=== PATIENT | male | born 1980 | race Caucasian/White ===

== ENCOUNTER 2018-04-08 13:01 | Inpatient (IN) | payer OTHER ==
[2018-04-08 13:36] VITALS: BMI 29.0
--- NOTE | 2018-04-08 14:01 | HP ---
COWS - Scale Resting Pulse: 1= AR 81-100 Sweatin=Flushed/Facial Moisture Restless Observation: 0= Sits Still Pupil Size: 0= Normal to Room Light Bone or Joint Aches: 1= Mild Discomfort Runny Nose/ Eye Tearin= None GI Upset > 30mins: 0= None Tremor Observation: 0= None Yawning Observation: 0= None Anxiety or Irritability: 0= None CIWA Score - CIWA Score Nausea/Vomitin-Mild Nausea/No Vomiting Muscle Tremors: None Anxiety: 0-No Anxiety, at Ease Agitation: 0-Normal Activity Paroxysmal Sweats: 2 Orientation: 0-Oriented Tacttile Disturbances: 0-None Auditory Disturbances: 0-None Visual Disturbances: 1-Very Mild Sensitivity Headache: 0-None Present CIWA-Ar Total Score: 4 Admission ROS S - HPI Chief Complaint: pt here requesting detox from etoh use , reports 1 .5-2 pints/day x 15 yrs , latest use yesterday , reports diarrhea, tremors, shaking , difficulty sleeping , anxiety if not drinking , starts drinking early afternoon, denies seizures , + blackouts , denies falls states he was referred by [facility] . Reports on Suboxone from PCP i-stop 03/04/2018 04/04/2018 suboxone 8 mg-2 mg sl film 90 30 Braden Serna 03/04/2018 03/06/2018 suboxone 8 mg-2 mg sl film 90 30 SernaBraden cm 12/31/2017 01/10/2018 suboxone 8 mg-2 mg sl film 90 30 Braden Serna 12/12/2017 12/12/2017 suboxone 8 mg-2 mg sl film 90 30 Darlin Mckeon 11/06/2017 11/14/2017 suboxone 8 mg-2 mg sl film 90 30 SernaBraden cm 09/17/2017 09/17/2017 suboxone 8 mg-2 mg sl film 90 30 Barden Serna Patient Name: Silvestre Eng Date: 1980 Address: [address] [place] [id number] Sex: Male Rx Written Rx Dispensed Drug Quantity Days Supply Prescriber Name 10/09/2017 10/15/2017 suboxone 8 mg-2 mg sl film 90 30 Braden Serna 08/21/2017 08/22/2017 suboxone 8 mg-2 mg sl film 90 30 Braden Serna 03/26/2017 04/29/2017 suboxone 8 mg-2 mg sl film 90 30 Braden Serna latest heroin use : " I don't rermember " cocaine use - denies utox - teressa , opi , bup , fentanyl claims took a pill a few days ago " sivan " - claims a " mixture of things " denies prior OD denies IVDU pmhx : asthma x 2 years ( hospitalized 2 weeks ago, [facility] ) has inhaler Albuterol , Advair , Prednisone pshx : denies psych : denies meds : Gabapentin tobacco use - 3 cigs/day denies nrt Allergies/Adverse Reactions: Allergies Allergy/AdvReac Type Severity Reaction Status Date / Time Fish Containing Products Allergy Severe Swelling Verified 10/05/15 16:21 No Known Drug Allergies Allergy Verified 10/05/15 17:28 - Ebola screening Have you traveled outside of the country in the last 21 days: No Have you had contact with anyone from an Ebola affected area: No Have you been sick,other than usual withdrawal symptoms: No Do you have a fever: No - Review of Systems Constitutional: See HPI EENT: reports: See HPI Respiratory: reports: See HPI Cardiac: reports: See HPI GI: reports: See HPI : reports: See HPI Musculoskeletal: reports: See HPI Integumentary: reports: See HPI Neuro: reports: See HPI Endocrine: reports: See HPI Hematology: reports: See HPI Psychiatric: reports: No Sypmtoms Reported Patient History - Patient Medical History Hx Anemia: No Hx Asthma: No Hx Chronic Obstructive Pulmonary Disease (COPD): No Hx Cancer: No Hx Cardiac Disorders: No Hx Congestive Heart Failure: No Hx Hypertension: No Hx Hypercholesterolemia: No Hx Pacemaker: No HX Cerebrovascular Accident: No Hx Seizures: No Hx Dementia: No Hx Diabetes: No Hx Gastrointestinal Disorders: No Hx Genitourinary Disorders: No Hx Sexually Transmitted Disorders: No Hx Renal Disease (ESRD): No Hx Thyroid Disease: No Hx Human Immunodeficiency Virus (HIV): No (neg 1 year) Hx Hepatitis C: No Hx Depression: No Hx Suicide Attempt: No Hx Bipolar Disorder: No Hx Schizophrenia: No - Patient Surgical History Past Surgical History: No Hx Neurologic Surgery: No Hx Cataract Extraction: No Hx Cardiac Surgery: No Hx Lung Surgery: No Hx Breast Surgery: No Hx Breast Biopsy: No Hx Abdominal Surgery: No Hx Appendectomy: No Hx Cholecystectomy: No Hx Genitourinary Surgery: No Hx Section: No Hx Orthopedic Surgery: No Anesthesia Reaction: No - PPD History Date: 10/07/15 - Smoking Cessation Smoking history: Current every day smoker Have you smoked in the past 12 months: Yes Aproximately how many cigarettes per day: 4 Hx Chewing Tobacco Use: No Initiated information on smoking cessation: No Family Disease History - Family Disease History Family History: Denies Admission Physical Exam [facility] - Vital Signs Vital Signs: Vital Signs - 24 hr 04/08/18 13:35 Temperature 99.6 F Pulse Rate 85 Respiratory 18 Rate Blood Pressure 125/96 - Physical General Appearance: Yes: Within Normal Limits, No Apparent Distress, Nourished, Appropriately Dressed HEENTM: Yes: Within Normal Limits, EOMI, Hearing grossly Normal, Normal ENT Inspection, Normocephalic, Normal Voice, MARY KATE, Pharynx Normal, Tm's normal Respiratory: Yes: Within Normal Limits, Chest Non-Tender, Lungs Clear, Normal Breath Sounds, No Respiratory Distress, No Accessory Muscle Use Neck: Yes: Within Normal Limits, No masses,lesions,Nodules, Trachea in good position, Thyroid enlarged Cardiology: Yes: Within Normal Limits, Regular Rhythm, Regular Rate Abdominal: Yes: Within Normal Limits, Normal Bowel Sounds, Non Tender, Flat, Soft Back: Yes: Within Normal Limits, Normal Inspection Musculoskeletal: Yes: Within Normal Limits, full range of Motion, Gait Steady, Pelvis Stable Extremities: Yes: Within Normal Limits, Normal Inspection, Normal Range of Motion, Non-Tender Neurological: Yes: Within Normal Limits, Fully Oriented, Alert, Motor Strength 5 /5, Normal Mood/Affect, Normal Response, Finger to Nose Integumentary: Yes: Within Normal Limits, Normal Color, Dry, Warm Lymphatic: Yes: Within Normal Limits Cleared for Admission S - Detox or Rehab Detox Regimen/Protocol: Librium [facility] Breath Alcohol Content Breath Alcohol Content: 0 Urine Drug Screen - Results Drug Screen Negative: No Urine Drug Screen Results: TERESSA-Cocaine, OPI-Opiates, FEN-Fentanyl, BUP-Suboxone
[2018-04-08] MEDS ORDERED: ACETAMINOPHEN 325 MG TABLET (FP) PO PRN (14:16)
[2018-04-08] MEDS ORDERED: MAG HYDROX/AL HYDROX/SIMETH 30 ML UNIT-DOSE CUP PO PRN (14:16)
[2018-04-08] MEDS ORDERED: IBUPROFEN 400 MG TABLET (FP) PO PRN (14:16)
[2018-04-08] MEDS ORDERED: MAGNESIUM CITRATE 300 ML BOTTLE PO PRN (14:16)
[2018-04-08] MEDS ORDERED: MAGNESIUM HYDROX 2400MG/30ML ORAL SUSPENSION 30 ML CUP PO PRN (14:16)
[2018-04-08] MEDS ORDERED: ALBUTEROL SO4 0.083% IH SOL 2.5 MG/3 ML VIAL.NEB. NEB PRN (14:20)
[2018-04-08] MEDS ORDERED: ALBUTEROL SO4 8 GM HFA INHALER IH PRN (14:20)
[2018-04-08] MEDS: chlordiazePOXIDE HCL 25 MG CAPSULE PO SCH ×2 (17:29→22:14)
[2018-04-08] MEDS ORDERED: MELATONIN 5 MG TABLETS PO PRN (22:00)
[2018-04-08] MEDS: THIAMINE HCL 100 MG TABLET (FP) PO SCH (22:14)
[2018-04-08] MEDS: predniSONE 20 MG TABLET (UD) PO SCH (22:15)
[2018-04-08] MEDS: MONTELUKAST NA 10 MG TABLET PO SCH (22:15)
[2018-04-08] MEDS: GABAPENTIN 300 MG CAPSULE (FP) PO SCH (22:15)
[2018-04-08 23:13] LABS: URINE APPEARANCE TURBID; URINE BILIRUBIN NEGATIVE (<2.0 mg/dL); URINE COLOR YELLOW; URINE GLUCOSE (UA) NEGATIVE (NEGATIVE); URINE KETONE NEGATIVE (NEGATIVE); URINE LEUK ESTERASE NEGATIVE (NEGATIVE); URINE NITRITE NEGATIVE (NEGATIVE); URINE PROTEIN NEGATIVE (NEGATIVE); URINE UROBILINOGEN 4.0 E.U/dl mg/dL (0.2-1.0)
[2018-04-09] MEDS: GABAPENTIN 300 MG CAPSULE (FP) PO SCH ×3 (05:54→22:18)
[2018-04-09] MEDS: chlordiazePOXIDE HCL 25 MG CAPSULE PO SCH ×4 (05:54→22:18)
--- NOTE | 2018-04-09 09:51 | PN ---
S CIWA - CIWA Score Nausea/Vomitin-No Nausea/No Vomiting Muscle Tremors: None Anxiety: 1-Mildly Anxious Agitation: 0-Normal Activity Paroxysmal Sweats: 1-Minimal Palms Moist Orientation: 0-Oriented Tacttile Disturbances: 0-None Auditory Disturbances: 0-None Visual Disturbances: 0-None Headache: 1-Very Mild CIWA-Ar Total Score: 3 [facility] Progress Note (SOAP) Subjective: Patient presents with mild sweating, anxiety and headache. Objective: 04/09/18 09:49 Laboratory Tests 04/08/18 16:54 Urine Color Yellow Urine Appearance Turbid Urine pH 5.0 Ur Specific [place] 1.030 Urine Protein Negative Urine Glucose (UA) Negative Urine Ketones Negative Urine Blood Negative Urine Nitrite Negative Urine Bilirubin Negative Urine Urobilinogen 4.0 e.u/dl Ur Leukocyte Esterase Negative Vital Signs Temperature 98.0 F 04/09/18 09:08 Pulse Rate 67 04/09/18 09:08 Respiratory Rate 18 04/09/18 09:08 Blood Pressure 110/63 04/09/18 09:08 O2 Sat by Pulse Oximetry (%) obj: alert and oriented skin warm and moist car s1s2 resp cta bl psych mild anxiety Assessment: 04/09/18 09:51 withdrawal syndrome Plan: continue detox as per protocol encourage oral fluids continue to monitor clinically
[2018-04-09] MEDS: PRENATAL VITAMINS W/ FOLIC ACID TABLET (FP) PO SCH (10:19)
[2018-04-09] MEDS: predniSONE 20 MG TABLET (UD) PO SCH ×2 (10:19→22:19)
[2018-04-09] MEDS: BUPRENORPHINE/NALOXONE 8 MG/2 MG FILM PACKET SL SCH (10:20)
[2018-04-09 10:21] LABS: HEMATOCRIT 43.7 % (35.4-49); HEMOGLOBIN 14.1 GM/dL (11.7-16.9); MCH 29.8 pg (25.7-33.7); MCHC 32.3 g/dl (32.0-35.9); MEAN CELL VOLUME 92.1 fl (80-96); MEAN PLT VOLUME 10.8 fl (7.5-11.1); PLATELET COUNT 186 K/MM3 (134-434); RBC 4.74 M/mm3 (4.00-5.60); RDW 13.3 % (11.9-15.9); WHITE BLOOD COUNT 9.3 K/mm3 (4.0-10.0)
[2018-04-09 10:40] LABS: CHLORIDE 104 mmol/L (98-107); POTASSIUM 4.2 mmol/L (3.5-5.1); SODIUM 139 mmol/L (136-145)
[2018-04-09 11:16] LABS: ALBUMIN 3.7 g/dl (3.4-5.0); ALK PHOS 126 U/L (45-117); ANION GAP 7 MMOL/L (8-16); BILIRUBIN,TOTAL 0.4 mg/dL (0.2-1); BLOOD UREA NITROGEN 14 mg/dL (7-18); CALCIUM 9.2 mg/dL (8.5-10.1); CO2 28 mmol/L (21-32); GLUCOSE,RANDOM 126 mg/dL (74-106); SGOT/AST 22 U/L (15-37); SGPT/ALT 40 U/L (13-61); TOT PROT 7.4 g/dl (6.4-8.2)
[2018-04-09] MEDS ORDERED: FLU VACCINE QUAD 60 MCG/0.5 ML (MDV 18-19) IM ONE (12:00)
--- NOTE | 2018-04-09 12:59 | EKG ---
Test Reason : Blood Pressure : / mmHG Vent. Rate : 060 BPM Atrial Rate : 060 BPM P-R Int : 126 ms QRS Dur : 090 ms QT Int : 404 ms P-R-T Axes : 032 065 033 degrees QTc Int : 404 ms NORMAL SINUS RHYTHM NORMAL ECG NO PREVIOUS ECGS AVAILABLE Confirmed by SANDRA HANDLEY, KWADWO ([id number]) on 04/09/2018 12:59:11 PM Referred By: Confirmed By:KWADWO FLORES MD
[2018-04-09] MEDS ORDERED: BUDESONIDE/FORMETEROL FUMARATE 80/4.5 mcg INHALER IH ONE (13:45)
--- NOTE | 2018-04-09 16:17 | PN ---
[facility] Progress Note Note: Patient has been treated with suboxone 8mg three times daily which was verified in ISTOP and dispensed 04/04/18. Patient was admitted on 04/08/18 and ordered Suboxone 8mg daily [address]. Miner. Dr. Miner called to verify order and MD stated that patient was informed he will be ordered suboxone 8mg daily while in detox and agreed with plan. Patient to continue Suboxone as ordered.
[2018-04-09] MEDS: BUDESONIDE/FORMETEROL FUMARATE 80/4.5 mcg INHALER IH SCH (22:17)
[2018-04-09] MEDS: MONTELUKAST NA 10 MG TABLET PO SCH (22:18)
[2018-04-09] MEDS: THIAMINE HCL 100 MG TABLET (FP) PO SCH (22:18)
[2018-04-10] MEDS: chlordiazePOXIDE HCL 25 MG CAPSULE PO SCH ×2 (05:16→10:14)
[2018-04-10] MEDS: GABAPENTIN 300 MG CAPSULE (FP) PO SCH ×3 (05:16→22:58)
[2018-04-10] MEDS: PRENATAL VITAMINS W/ FOLIC ACID TABLET (FP) PO SCH (10:14)
[2018-04-10] MEDS: BUDESONIDE/FORMETEROL FUMARATE 80/4.5 mcg INHALER IH SCH ×2 (10:14→23:17)
[2018-04-10] MEDS: predniSONE 20 MG TABLET (UD) PO SCH ×2 (10:14→22:21)
[2018-04-10] MEDS: BUPRENORPHINE/NALOXONE 8 MG/2 MG FILM PACKET SL SCH (10:14)
--- NOTE | 2018-04-10 12:58 | PN ---
S CIWA - CIWA Score Nausea/Vomitin-Mild Nausea/No Vomiting Muscle Tremors: None Anxiety: 1-Mildly Anxious Agitation: 0-Normal Activity Paroxysmal Sweats: No Perspiration Orientation: 0-Oriented Tacttile Disturbances: 0-None Auditory Disturbances: 0-None Visual Disturbances: 0-None Headache: 2-Mild CIWA-Ar Total Score: 4 [facility] Progress Note (SOAP) Subjective: PATIENT PRESENTS WITH MILD ANXIETY, HEADACHE, INSOMNIA, MILD NAUSEA AND STOMACH CRAMPS. Objective: 04/10/18 12:54 Laboratory Tests 04/08/18 04/09/18 04/09/18 16:54 07:00 07:00 WBC 9.3 RBC 4.74 Hgb 14.1 Hct 43.7 MCV 92.1 MCH 29.8 MCHC 32.3 RDW 13.3 Plt Count 186 D MPV 10.8 Sodium 139 Potassium 4.2 Chloride 104 Carbon Dioxide 28 Anion Gap 7 L BUN 14 Creatinine 1.0 Creat Clearance w eGFR > 60 Random Glucose 126 H Calcium 9.2 Total Bilirubin 0.4 AST 22 ALT 40 Alkaline Phosphatase 126 H Total Protein 7.4 Albumin 3.7 Urine Color Yellow Urine Appearance Turbid Urine pH 5.0 Ur Specific [place] 1.030 Urine Protein Negative Urine Glucose (UA) Negative Urine Ketones Negative Urine Blood Negative Urine Nitrite Negative Urine Bilirubin Negative Urine Urobilinogen 4.0 e.u/dl Ur Leukocyte Esterase Negative RPR Titer 04/09/18 07:00 WBC RBC Hgb Hct MCV MCH MCHC RDW Plt Count MPV Sodium Potassium Chloride Carbon Dioxide Anion Gap BUN Creatinine Creat Clearance w eGFR Random Glucose Calcium Total Bilirubin AST ALT Alkaline Phosphatase Total Protein Albumin Urine Color Urine Appearance Urine pH Ur Specific [place] Urine Protein Urine Glucose (UA) Urine Ketones Urine Blood Urine Nitrite Urine Bilirubin Urine Urobilinogen Ur Leukocyte Esterase RPR Titer Nonreactive ALERT AND ORIENTED X 3 SKIN WARM AND DRY CAR S1S2 RESP CTA GI SOFT, BS+ NT NEURO CN 1-X11 GROSSLY INTACT 04/10/18 12:57 Assessment: 04/10/18 12:57 WITHDRAWAL SYNDROME Plan: CONTINUE DETOX PER PROTOCOL ENCOURAGE ORAL FLUIDS
--- NOTE | 2018-04-10 15:14 | PN ---
[facility] Progress Note Note: Patient continues to have anxiety, headaches and body aches. Discussed symptoms with Dr. Miner. agreed to give one additional film of Suboxone 8mg/2mg tonight at 10pm and MD is to follow up with patient tomorrow. Suboxone 8mg/2mg one film ordered to be given at 10pm. Continue to monitor clinically.
[2018-04-10] MEDS ORDERED: BUPRENORPHINE/NALOXONE 8 MG/2 MG FILM PACKET SL ONE ×2 (17:00→22:00)
[2018-04-10] MEDS: chlordiazePOXIDE 5 MG CAPSULE PO SCH ×2 (17:44→22:21)
[2018-04-10] MEDS: MONTELUKAST NA 10 MG TABLET PO SCH (22:21)
[2018-04-10] MEDS: THIAMINE HCL 100 MG TABLET (FP) PO SCH (22:21)
[2018-04-11] MEDS: chlordiazePOXIDE 5 MG CAPSULE PO SCH ×2 (05:19→10:09)
[2018-04-11] MEDS: GABAPENTIN 300 MG CAPSULE (FP) PO SCH ×3 (05:19→22:33)
[2018-04-11] MEDS: BUPRENORPHINE/NALOXONE 8 MG/2 MG FILM PACKET SL SCH ×3 (05:20→22:33)
[2018-04-11] MEDS: BUDESONIDE/FORMETEROL FUMARATE 80/4.5 mcg INHALER IH SCH ×2 (10:09→22:34)
[2018-04-11] MEDS: PRENATAL VITAMINS W/ FOLIC ACID TABLET (FP) PO SCH (10:09)
[2018-04-11] MEDS: predniSONE 20 MG TABLET (UD) PO SCH ×2 (10:09→22:33)
--- NOTE | 2018-04-11 10:52 | PN ---
[facility] Progress Note (SOAP) Subjective: ANXIETY,SWEATS/CHILLS,FATIGUE. Objective: 04/11/18 10:51 Vital Signs 04/11/18 04/11/18 04/11/18 03:30 06:09 09:48 Temperature 97.5 F L 97.6 F Pulse Rate 58 L 63 Respiratory 18 18 18 Rate Blood Pressure 123/67 112/77 Laboratory Tests 04/08/18 04/09/18 04/09/18 16:54 07:00 07:00 WBC 9.3 RBC 4.74 Hgb 14.1 Hct 43.7 MCV 92.1 MCH 29.8 MCHC 32.3 RDW 13.3 Plt Count 186 D MPV 10.8 Sodium 139 Potassium 4.2 Chloride 104 Carbon Dioxide 28 Anion Gap 7 L BUN 14 Creatinine 1.0 Creat Clearance w eGFR > 60 Random Glucose 126 H Calcium 9.2 Total Bilirubin 0.4 AST 22 ALT 40 Alkaline Phosphatase 126 H Total Protein 7.4 Albumin 3.7 Urine Color Yellow Urine Appearance Turbid Urine pH 5.0 Ur Specific [place] 1.030 Urine Protein Negative Urine Glucose (UA) Negative Urine Ketones Negative Urine Blood Negative Urine Nitrite Negative Urine Bilirubin Negative Urine Urobilinogen 4.0 e.u/dl Ur Leukocyte Esterase Negative RPR Titer 04/09/18 07:00 WBC RBC Hgb Hct MCV MCH MCHC RDW Plt Count MPV Sodium Potassium Chloride Carbon Dioxide Anion Gap BUN Creatinine Creat Clearance w eGFR Random Glucose Calcium Total Bilirubin AST ALT Alkaline Phosphatase Total Protein Albumin Urine Color Urine Appearance Urine pH Ur Specific [place] Urine Protein Urine Glucose (UA) Urine Ketones Urine Blood Urine Nitrite Urine Bilirubin Urine Urobilinogen Ur Leukocyte Esterase RPR Titer Nonreactive Assessment: 04/11/18 10:52 WITHDRAWAL SX Plan: CONTINUE DETOX
[2018-04-11] MEDS: chlordiazePOXIDE HCL 10 MG CAPSULE PO SCH ×2 (17:10→22:47)
[2018-04-11] MEDS: THIAMINE HCL 100 MG TABLET (FP) PO SCH (22:33)
[2018-04-11] MEDS: MONTELUKAST NA 10 MG TABLET PO SCH (22:33)
[2018-04-12] MEDS: chlordiazePOXIDE HCL 10 MG CAPSULE PO SCH (05:20)
[2018-04-12] MEDS: GABAPENTIN 300 MG CAPSULE (FP) PO SCH (05:20)
[2018-04-12] MEDS: BUPRENORPHINE/NALOXONE 8 MG/2 MG FILM PACKET SL SCH (05:21)
[2018-04-12 09:13] VITALS: BP 110/76; PULSE 74; TEMP 98.4
--- NOTE | 2018-04-12 10:26 | PN ---
[facility] Progress Note (SOAP) Subjective: DETOX COMPLETED. ALERT O X 3. NAD. PT STATES HE HAS A PMD DR. Reji VERDUZCO ON [address] [place] [address] FOR MEDICAL MANAGEMENT AND SUBOXONE TREATMENT. PT REPORTS HE HAS OWN MEDS IN HIS PROPERTY. Objective: 04/12/18 10:24 Vital Signs 04/12/18 04/12/18 04/12/18 03:30 05:58 06:30 Temperature 97.4 F L Pulse Rate 60 Respiratory 18 18 18 Rate Blood Pressure 100/61 04/12/18 09:12 Temperature 98.4 F Pulse Rate 74 Respiratory 18 Rate Blood Pressure 110/76 Laboratory Tests 04/08/18 04/09/18 04/09/18 16:54 07:00 07:00 WBC 9.3 RBC 4.74 Hgb 14.1 Hct 43.7 MCV 92.1 MCH 29.8 MCHC 32.3 RDW 13.3 Plt Count 186 D MPV 10.8 Sodium 139 Potassium 4.2 Chloride 104 Carbon Dioxide 28 Anion Gap 7 L BUN 14 Creatinine 1.0 Creat Clearance w eGFR > 60 Random Glucose 126 H Calcium 9.2 Total Bilirubin 0.4 AST 22 ALT 40 Alkaline Phosphatase 126 H Total Protein 7.4 Albumin 3.7 Urine Color Yellow Urine Appearance Turbid Urine pH 5.0 Ur Specific [place] 1.030 Urine Protein Negative Urine Glucose (UA) Negative Urine Ketones Negative Urine Blood Negative Urine Nitrite Negative Urine Bilirubin Negative Urine Urobilinogen 4.0 e.u/dl Ur Leukocyte Esterase Negative RPR Titer 04/09/18 07:00 WBC RBC Hgb Hct MCV MCH MCHC RDW Plt Count MPV Sodium Potassium Chloride Carbon Dioxide Anion Gap BUN Creatinine Creat Clearance w eGFR Random Glucose Calcium Total Bilirubin AST ALT Alkaline Phosphatase Total Protein Albumin Urine Color Urine Appearance Urine pH Ur Specific [place] Urine Protein Urine Glucose (UA) Urine Ketones Urine Blood Urine Nitrite Urine Bilirubin Urine Urobilinogen Ur Leukocyte Esterase RPR Titer Nonreactive Assessment: 04/12/18 10:24 WITHDRAWAL SX Plan: D/C PT TODAY FOLLOW UP WITH YOUR PMD FOR MEDICAL MANAGEMENT NEEDED IN 1-2 WEEKS AFTER DISCHARGE.
--- NOTE | 2018-04-12 10:28 | DS ---
[facility] Detox Discharge Summary Admission Date: 04/08/18 Discharge Date: 04/12/18 - History Present History: Alcohol Dependence, MMTP (SUBOXONE MAINTENANCE) Additional Comments: DETOX COMPLETED. ALERT O X 3. NAD. FOLLOW UP WITH PMD DR. Reji VERDUZCO FOR MEDICAL MANAGEMENT NEEDED. Pertinent Past History: PLEASE SEE DX BELOW - Physical Exam Results Vital Signs: Vital Signs Temperature 98.4 F 04/12/18 09:12 Pulse Rate 74 04/12/18 09:12 Respiratory Rate 18 04/12/18 09:12 Blood Pressure 110/76 04/12/18 09:12 O2 Sat by Pulse Oximetry (%) Pertinent Admission Physical Exam Findings: WITHDRAWAL SX Vital Signs 04/12/18 04/12/18 04/12/18 03:30 05:58 06:30 Temperature 97.4 F L Pulse Rate 60 Respiratory 18 18 18 Rate Blood Pressure 100/61 04/12/18 09:12 Temperature 98.4 F Pulse Rate 74 Respiratory 18 Rate Blood Pressure 110/76 Laboratory Tests 04/08/18 04/09/18 04/09/18 16:54 07:00 07:00 WBC 9.3 RBC 4.74 Hgb 14.1 Hct 43.7 MCV 92.1 MCH 29.8 MCHC 32.3 RDW 13.3 Plt Count 186 D MPV 10.8 Sodium 139 Potassium 4.2 Chloride 104 Carbon Dioxide 28 Anion Gap 7 L BUN 14 Creatinine 1.0 Creat Clearance w eGFR > 60 Random Glucose 126 H Calcium 9.2 Total Bilirubin 0.4 AST 22 ALT 40 Alkaline Phosphatase 126 H Total Protein 7.4 Albumin 3.7 Urine Color Yellow Urine Appearance Turbid Urine pH 5.0 Ur Specific [place] 1.030 Urine Protein Negative Urine Glucose (UA) Negative Urine Ketones Negative Urine Blood Negative Urine Nitrite Negative Urine Bilirubin Negative Urine Urobilinogen 4.0 e.u/dl Ur Leukocyte Esterase Negative RPR Titer 04/09/18 07:00 WBC RBC Hgb Hct MCV MCH MCHC RDW Plt Count MPV Sodium Potassium Chloride Carbon Dioxide Anion Gap BUN Creatinine Creat Clearance w eGFR Random Glucose Calcium Total Bilirubin AST ALT Alkaline Phosphatase Total Protein Albumin Urine Color Urine Appearance Urine pH Ur Specific [place] Urine Protein Urine Glucose (UA) Urine Ketones Urine Blood Urine Nitrite Urine Bilirubin Urine Urobilinogen Ur Leukocyte Esterase RPR Titer Nonreactive - Treatment Hospital Course: Detox Protocol Followed, Detoxed Safely, Responded well, Discharged Condition Good - Medication Discharge Medications: Ambulatory Orders Albuterol Sulfate Inhaler - [Ventolin Hfa Inhaler -] 2 inh PO Q4H PRN 04/08/18 Buprenorphine/Naloxone [Suboxone 8Mg/2Mg Sl Film -] 1 each SL TID 04/08/18 Fluticasone/Salmeterol [Advair 250-50 Diskus] 1 each IH DAILY 04/08/18 Gabapentin [Neurontin -] 300 mg PO Q8H 04/08/18 Montelukast Na [Singulair -] 10 mg PO HS 04/08/18 Prednisone [Deltasone] 20 mg PO DAILY 04/08/18 - Diagnosis (1) Alcohol dependence with uncomplicated withdrawal Current Visit: Yes Status: Acute (2) Encounter for monitoring Suboxone maintenance therapy Current Visit: Yes Status: Chronic - AMA Did Patient Leave Against Medical Advice: No
== END 2018-04-12 09:30 | disposition home or self-care (01) | DRG 773 ==
LOC: YASAS 13:01 → Y3N 15:46
PROC: HZ2ZZZZ Detoxification Services for Substance Abuse Treatment (ICD-10-PCS; principal; 2018-04-08)
DX: F10.230 Alcohol dependence with withdrawal, uncomplicated (principal); F11.20 Opioid dependence, uncomplicated; Z51.81 Encounter for therapeutic drug level monitoring; Z87.09 Personal history of other diseases of the respiratory system
CPT/HCPCS: 36415; 80053; 81003; 85027; 86593; 93005; 93010

== ENCOUNTER 2019-05-13 09:05 | Inpatient (IN) | payer OTHER ==
[2019-05-13 09:24] VITALS: BMI 32.3
--- NOTE | 2019-05-13 09:44 | HP ---
CIWA Score Nausea/Vomitin Muscle Tremors: 1-None Visible, but [place] Anxiety: 3 Agitation: 3 Paroxysmal Sweats: 4-Forehead w/Sweat Beads Orientation: 0-Oriented Tacttile Disturbances: 1-Very Mild Itch/Numbness Auditory Disturbances: 0-None Visual Disturbances: 0-None Headache: 0-None Present CIWA-Ar Total Score: 14 - Admission Criteria OASAS Guidelines: Admission for Medically Managed Detox: Requires at least one of the followin. CIWA greater than 12 2. Seizures within the past 24 hours 3. Delirium tremens within the past 24 hours 4. Hallucinations within the past 24 hours 5. Acute intervention needed for co occurring medical disorder 6. Acute intervention needed for co occurring psychiatric disorder 7. Severe withdrawal that cannot be handled at a lower level of care (continued vomiting, continued diarrhea, abnormal vital signs) requiring intravenous medication and/or fluids 8. Admitting History and Physical - Admission Chief Complaint: " I am serious about detox and want to clear my life up." History of Present Illness: 38 black male with history alcohol dependence with withdrawals. He is drinking 3pints of vodka per day, last drank yesterday. He has had blackouts in the past, last one 3 days ago. He denies withdrawal seizures. He smokes 3 ciggs per day, last smoked today. He sniffs cocaine, last time used 3 days ago. He is currently on suboxone in [facility] at [facility]. PMH: Asthma All: Fish - throat swells and itchy and diarrhea Psurg: None He is domiciled, he has support systems and family support. He decided to be admitted to stop the alcohol today. - Past Medical History Pulmonary: Yes: Asthma - Past Surgical History Past Surgical History: Yes: None - Advance Directives Advance Directives: No: Living Will, Health Care Proxy - Smoking History Smoking history: Current every day smoker Have you smoked in the past 12 months: Yes Aproximately how many cigarettes per day: 3 - Alcohol/Substance Use Hx Alcohol Use: Yes (3 pints of vodka daily) Number of Drinks Daily: 10 History of Substance Use: reports: Cocaine, Tranquilizers Date of Last Use: 05/12/19 - Social History Usual Living Arrangement: Yes: Alone Do you think of yourself as: Straight/Heterosexual ADL: Independent Occupation: manual skilled laborer History of Recent Travel: No Admission [facility] Chief Complaint: " I am serious about detox and want to clear my life up." Allergies/Adverse Reactions: Allergies Allergy/AdvReac Type Severity Reaction Status Date / Time Fish Containing Products Allergy Severe Swelling Verified 05/13/19 09:19 No Known Drug Allergies Allergy Verified 05/13/19 09:19 History of Present Illness: 38 black male with history alcohol dependence with withdrawals. He is drinking 3pints of vodka per day, last drank yesterday. He has had blackouts in the past, last one 3 days ago. He denies withdrawal seizures. He smokes 3 ciggs per day, last smoked today. He sniffs cocaine, last time used 3 days ago. He is currently on suboxone in [facility] at [facility]. PMH: Asthma All: Fish - throat swells and itchy and diarrhea Psurg: None He is domiciled, he has support systems and family support. He decided to be admitted to stop the alcohol today. - Ebola screening Have you traveled outside of the country in the last 21 days: No Have you had contact with anyone from an Ebola affected area: No Have you been sick,other than usual withdrawal symptoms: No Do you have a fever: No - Review of Systems Constitutional: Chills, Diaphoresis EENT: reports: No Symptoms Reported Respiratory: reports: No Symptoms reported Cardiac: reports: No Symptoms Reported GI: reports: Nausea, Abdominal cramping : reports: No Symptoms Reported Musculoskeletal: reports: Muscle Pain Integumentary: reports: No Symptoms Reported Neuro: reports: No Symptoms reported Endocrine: reports: No Symptoms Reported Hematology: reports: No Symptoms Reported Psychiatric: reports: No Sypmtoms Reported Other Systems: Reviewed and Negative Patient History - Patient Medical History Hx Anemia: No Hx Asthma: Yes (Pt is on MDI.) Hx Chronic Obstructive Pulmonary Disease (COPD): No Hx Cancer: No Hx Cardiac Disorders: No Hx Congestive Heart Failure: No Hx Hypertension: No Hx Hypercholesterolemia: No Hx Pacemaker: No HX Cerebrovascular Accident: No Hx Seizures: No Hx Dementia: No Hx Diabetes: No Hx Gastrointestinal Disorders: No Hx Genitourinary Disorders: No Hx Sexually Transmitted Disorders: No Hx Renal Disease (ESRD): No Hx Thyroid Disease: No Hx Human Immunodeficiency Virus (HIV): No (neg 1 year) Hx Hepatitis C: No Hx Depression: No Hx Suicide Attempt: No Hx Bipolar Disorder: No Hx Schizophrenia: No - Patient Surgical History Past Surgical History: No Hx Neurologic Surgery: No Hx Cataract Extraction: No Hx Cardiac Surgery: No Hx Lung Surgery: No Hx Breast Surgery: No Hx Breast Biopsy: No Hx Abdominal Surgery: No Hx Appendectomy: No Hx Cholecystectomy: No Hx Genitourinary Surgery: No Hx Section: No Hx Orthopedic Surgery: No Anesthesia Reaction: No - PPD History Previous Implant?: Yes Documented Results: Negative w/proof Implanted On Prior [facility] Admission?: Yes Date: 04/10/18 Results: negative PPD to be Administered?: Yes - Smoking Cessation Smoking history: Current every day smoker Have you smoked in the past 12 months: Yes Aproximately how many cigarettes per day: 3 Hx Chewing Tobacco Use: No Initiated information on smoking cessation: Yes 'Breaking Loose' booklet given: 05/13/19 - Substances abused Alcohol Substance route: Oral Frequency: Daily Amount used: 2 pints of vodka Age of first use: 18 Date of last use: 05/12/19 Admission Physical Exam S - Vital Signs Vital Signs: Vital Signs - 24 hr 05/13/19 09:19 Temperature 97.9 F Pulse Rate 80 Respiratory 20 Rate Blood Pressure 160/69 - Physical General Appearance: Yes: Mild Distress HEENTM: Yes: EOMI, Hearing grossly Normal, Normal ENT Inspection, Normocephalic , Normal Voice, MARY KATE, Pharynx Normal, Tm's normal Respiratory: Yes: Chest Non-Tender, Lungs Clear, Normal Breath Sounds, No Respiratory Distress, No Accessory Muscle Use Neck: Yes: No masses,lesions,Nodules, Supple, Trachea in good position Breast: Yes: Within Normal Limits Cardiology: Yes: Regular Rhythm, Regular Rate, S1, S2 Abdominal: Yes: Non Tender, Flat, Soft, Increased Bowel Sounds Genitourinary: Yes: Within Normal Limits Back: Yes: Within Normal Limits Musculoskeletal: Yes: full range of Motion, Gait Steady, Muscle Pain Extremities: Yes: Within Normal Limits Neurological: Yes: cover seamer II-XII NML intact, Fully Oriented, Alert, Motor Strength 5/5, Normal Mood/Affect, Normal Response Integumentary: Yes: Normal Color, Warm Lymphatic: Yes: Within Normal Limits - Diagnostic (1) Alcohol dependence with uncomplicated withdrawal Current Visit: Yes Status: Acute (2) History of asthma Current Visit: Yes Status: Chronic Cleared for Admission S - Detox or Rehab [facility] Level of Care: Medically Managed Detox Regimen/Protocol: Librium Breathalyzer - Breathalyzer Breathalyzer: 0.080 Inpatient Rehab Admission - Rehab Decision to Admit Inpatient rehab admission?: No
[2019-05-13] MEDS ORDERED: hydrOXYzine PAMOATE 25 MG CAPSULE (FP) PO PRN (09:49)
[2019-05-13] MEDS ORDERED: chlordiazePOXIDE HCL 25 MG CAPSULE PO PRN (09:49)
[2019-05-13] MEDS ORDERED: MAGNESIUM HYDROX 2400MG/30ML ORAL SUSPENSION 30 ML CUP PO PRN (09:49)
[2019-05-13] MEDS ORDERED: MENTHOL/PHENOL 1 EACH UD MM PRN (09:49)
[2019-05-13] MEDS ORDERED: MAG HYDROX/AL HYDROX/SIMETH 30 ML UNIT-DOSE CUP PO PRN (09:49)
[2019-05-13] MEDS ORDERED: BISMUTH SUBSALICYLATE 524 MG/30 ML UD PO PRN (09:49)
[2019-05-13] MEDS ORDERED: MAGNESIUM CITRATE 300 ML BOTTLE PO PRN (09:49)
[2019-05-13] MEDS ORDERED: ACETAMINOPHEN 325 MG TABLET (FP) PO PRN ×2 (09:49)
[2019-05-13] MEDS ORDERED: METHOCARBAMOL 500 MG TABLET PO PRN (09:49)
[2019-05-13] MEDS ORDERED: ALBUTEROL SO4 8 GM HFA INHALER IH PRN (09:51)
[2019-05-13] MEDS: GABAPENTIN 300 MG CAPSULE (FP) PO SCH ×2 (12:15→22:33)
[2019-05-13] MEDS: chlordiazePOXIDE HCL 25 MG CAPSULE PO SCH ×3 (12:15→22:33)
[2019-05-13] MEDS: BUPRENORPHINE/NALOXONE 8 MG/2 MG FILM PACKET SL SCH (12:16)
[2019-05-13] MEDS: PRENATAL VITAMINS W/ FOLIC ACID TABLET (FP) PO SCH (12:16)
[2019-05-13 14:34] LABS: HEMATOCRIT 39.2 % (35.4-49); HEMOGLOBIN 13.1 GM/dL (11.7-16.9); MCH 29.9 pg (25.7-33.7); MCHC 33.3 g/dl (32.0-35.9); MEAN CELL VOLUME 89.7 fl (80-96); MEAN PLT VOLUME 10.6 fl (7.5-11.1); PLATELET COUNT 164 K/MM3 (134-434); RBC 4.37 M/mm3 (4.00-5.60); RDW 14.7 % (11.9-15.9); WHITE BLOOD COUNT 9.1 K/mm3 (4.0-10.0)
[2019-05-13 14:44] LABS: ALBUMIN 3.9 g/dl (3.4-5.0); BILIRUBIN,TOTAL 0.4 mg/dL (0.2-1); BLOOD UREA NITROGEN 10.4 mg/dL (7-18); CALCIUM 9.2 mg/dL (8.5-10.1); POTASSIUM 3.4 mmol/L (3.5-5.1); TOT PROT 7.1 g/dl (6.4-8.2)
[2019-05-13] MEDS ORDERED: MONTELUKAST NA 10 MG TABLET PO SCH (22:00)
[2019-05-13] MEDS: THIAMINE HCL 100 MG TABLET (FP) PO SCH (22:33)
[2019-05-14] MEDS: chlordiazePOXIDE HCL 25 MG CAPSULE PO SCH ×4 (06:27→22:06)
[2019-05-14] MEDS: BUPRENORPHINE/NALOXONE 8 MG/2 MG FILM PACKET SL SCH (10:08)
[2019-05-14] MEDS: PRENATAL VITAMINS W/ FOLIC ACID TABLET (FP) PO SCH (10:09)
[2019-05-14] MEDS: GABAPENTIN 300 MG CAPSULE (FP) PO SCH ×2 (10:09→22:05)
--- NOTE | 2019-05-14 11:20 | PN ---
S CIWA - CIWA Score Nausea/Vomitin-No Nausea/No Vomiting Muscle Tremors: 3 Anxiety: 3 Agitation: 3 Paroxysmal Sweats: 3 Orientation: 0-Oriented Tacttile Disturbances: 0-None Auditory Disturbances: 0-None Visual Disturbances: 0-None Headache: 0-None Present CIWA-Ar Total Score: 12 S Progress Note (SOAP) Subjective: body aches sweats shakes interrupted sleep agitation Objective: 05/14/19 11:18 Vital Signs Temperature 97.9 F 05/14/19 09:27 Pulse Rate 70 05/14/19 09:27 Respiratory Rate 17 05/14/19 09:27 Blood Pressure 114/66 05/14/19 09:27 O2 Sat by Pulse Oximetry (%) Laboratory Tests 05/13/19 05/13/19 05/13/19 11:05 11:05 11:05 WBC 9.1 RBC 4.37 Hgb 13.1 Hct 39.2 MCV 89.7 MCH 29.9 MCHC 33.3 RDW 14.7 D Plt Count 164 MPV 10.6 Sodium 141 Potassium 3.4 L Chloride 106 Carbon Dioxide 27 Anion Gap 9 BUN 10.4 Creatinine 1.0 Est GFR (CKD-EPI)AfAm 110.94 Est GFR (CKD-EPI)NonAf 95.72 Random Glucose 84 Calcium 9.2 Total Bilirubin 0.4 AST 39 H ALT 66 H Alkaline Phosphatase 93 Total Protein 7.1 Albumin 3.9 RPR Titer Nonreactive labs noted low potassium 3.4; kdur will be ordered aaox3 ambulating no acute distress mild high liver enzymes noted Assessment: 05/14/19 11:19 withdrawal sx Plan: continue detox increase fluids kdur 40meq x 3 days ordered repeat ast/alt d/c tylenol
[2019-05-14] MEDS: THIAMINE HCL 100 MG TABLET (FP) PO SCH (22:05)
[2019-05-14] MEDS: MELATONIN 5 MG TABLETS PO PRN (22:06)
[2019-05-15] MEDS: chlordiazePOXIDE HCL 25 MG CAPSULE PO SCH ×4 (06:48→22:48)
[2019-05-15] MEDS: PRENATAL VITAMINS W/ FOLIC ACID TABLET (FP) PO SCH (10:32)
[2019-05-15] MEDS: BUPRENORPHINE/NALOXONE 8 MG/2 MG FILM PACKET SL SCH (10:32)
[2019-05-15] MEDS: GABAPENTIN 300 MG CAPSULE (FP) PO SCH ×2 (10:32→22:48)
--- NOTE | 2019-05-15 12:18 | PN ---
S CIWA - CIWA Score Nausea/Vomitin-Mild Nausea/No Vomiting Muscle Tremors: 1-None Visible, but [place] Anxiety: 1-Mildly Anxious Agitation: 1-Slight > Activity Paroxysmal Sweats: 2 Orientation: 0-Oriented Tacttile Disturbances: 2-Mild Itch/Numbness/Burn Auditory Disturbances: 0-None Visual Disturbances: 0-None Headache: 0-None Present CIWA-Ar Total Score: 8 BHS Progress Note (SOAP) Subjective: I feel better but still have interrupted sleep, sweats and body aches Objective: 05/15/19 12:15 Vital Signs Temperature 97.7 F 05/15/19 09:43 Pulse Rate 76 05/15/19 09:43 Respiratory Rate 18 05/15/19 09:43 Blood Pressure 111/59 L 05/15/19 09:43 O2 Sat by Pulse Oximetry (%) Laboratory Tests 05/13/19 05/13/19 05/13/19 11:05 11:05 11:05 WBC 9.1 RBC 4.37 Hgb 13.1 Hct 39.2 MCV 89.7 MCH 29.9 MCHC 33.3 RDW 14.7 D Plt Count 164 MPV 10.6 Sodium 141 Potassium 3.4 L Chloride 106 Carbon Dioxide 27 Anion Gap 9 BUN 10.4 Creatinine 1.0 Est GFR (CKD-EPI)AfAm 110.94 Est GFR (CKD-EPI)NonAf 95.72 Random Glucose 84 Calcium 9.2 Total Bilirubin 0.4 AST 39 H ALT 66 H Alkaline Phosphatase 93 Total Protein 7.1 Albumin 3.9 RPR Titer Nonreactive pt aox3 in nad ambulating well and cooperative Assessment: 05/15/19 12:16 withdrawal sx's hypokalemia k-3.4 mild ly elevated transaminases Plan: cont. detox increase fluids kcl 20meq x 2 motrin prn
[2019-05-15] MEDS: IBUPROFEN 400 MG TABLET (FP) PO PRN ×2 (14:27→20:27)
[2019-05-15] MEDS: THIAMINE HCL 100 MG TABLET (FP) PO SCH (22:48)
[2019-05-16] MEDS ORDERED: chlordiazePOXIDE HCL 10 MG CAPSULE PO PRN
[2019-05-16] MEDS: chlordiazePOXIDE HCL 10 MG CAPSULE PO SCH ×4 (05:53→22:17)
[2019-05-16] MEDS: BUPRENORPHINE/NALOXONE 8 MG/2 MG FILM PACKET SL SCH (10:08)
[2019-05-16] MEDS: PRENATAL VITAMINS W/ FOLIC ACID TABLET (FP) PO SCH (10:08)
[2019-05-16] MEDS: GABAPENTIN 300 MG CAPSULE (FP) PO SCH ×2 (10:08→22:17)
--- NOTE | 2019-05-16 12:31 | PN ---
S CIWA - CIWA Score Nausea/Vomitin-No Nausea/No Vomiting Muscle Tremors: 2 Anxiety: 2 Agitation: 0-Normal Activity Paroxysmal Sweats: 3 Orientation: 0-Oriented Tacttile Disturbances: 0-None Auditory Disturbances: 0-None Visual Disturbances: 0-None Headache: 2-Mild CIWA-Ar Total Score: 9 BHS Progress Note (SOAP) Subjective: c/o sweats, anxiety, headache, and shakes. Objective: 05/16/19 12:32 Vital Signs 05/16/19 05/16/19 06:38 11:48 Temperature 97.3 F L 97.9 F Pulse Rate 58 L 73 Respiratory 18 20 Rate Blood Pressure 106/57 L 113/56 L Lab Results WBC 9.1 K/mm3 (4.0-10.0) 05/13/19 11:05 RBC 4.37 M/mm3 (4.00-5.60) 05/13/19 11:05 Hgb 13.1 GM/dL (11.7-16.9) 05/13/19 11:05 Hct 39.2 % (35.4-49) 05/13/19 11:05 MCV 89.7 fl (80-96) 05/13/19 11:05 MCHC 33.3 g/dl (32.0-35.9) 05/13/19 11:05 RDW 14.7 % (11.9-15.9) D 05/13/19 11:05 Plt Count 164 K/MM3 (134-434) 05/13/19 11:05 Sodium 141 mmol/L (136-145) 05/13/19 11:05 Potassium 3.4 mmol/L (3.5-5.1) L 05/13/19 11:05 Chloride 106 mmol/L (98-107) 05/13/19 11:05 Carbon Dioxide 27 mmol/L (21-32) 05/13/19 11:05 Anion Gap 9 MMOL/L (8-16) 05/13/19 11:05 BUN 10.4 mg/dL (7-18) 05/13/19 11:05 Creatinine 1.0 mg/dL (0.55-1.3) 05/13/19 11:05 Random Glucose 84 mg/dL (74-106) 05/13/19 11:05 Calcium 9.2 mg/dL (8.5-10.1) 05/13/19 11:05 Labs noted. Assessment: 05/16/19 12:34 AOX3, in no acute respiratory distress. Full ROM, ambulating in the unit. withdrawal symptoms. Plan: continue detox.
[2019-05-16] MEDS: MELATONIN 5 MG TABLETS PO PRN (22:17)
[2019-05-16] MEDS: THIAMINE HCL 100 MG TABLET (FP) PO SCH (22:17)
[2019-05-17] MEDS: chlordiazePOXIDE HCL 10 MG CAPSULE PO SCH ×2 (05:37→17:24)
[2019-05-17] MEDS: PRENATAL VITAMINS W/ FOLIC ACID TABLET (FP) PO SCH (10:18)
[2019-05-17] MEDS: BUPRENORPHINE/NALOXONE 8 MG/2 MG FILM PACKET SL SCH (10:18)
[2019-05-17] MEDS: GABAPENTIN 300 MG CAPSULE (FP) PO SCH ×2 (10:18→22:17)
--- NOTE | 2019-05-17 14:51 | PN ---
S CIWA - CIWA Score Nausea/Vomitin-No Nausea/No Vomiting Muscle Tremors: None Anxiety: 3 Agitation: 3 Paroxysmal Sweats: No Perspiration Orientation: 0-Oriented Tacttile Disturbances: 0-None Auditory Disturbances: 0-None Visual Disturbances: 0-None Headache: 0-None Present CIWA-Ar Total Score: 6 BHS Progress Note (SOAP) Subjective: Anxious, restless. As per patient, he is for discharge tomorrow and requesting to leave by 7am because he has a lot of things to do before he goes home in [place]. Patient requesting to have his AM dose for suboxone and gabapentin changed from 11 am so that he can take it before he leaves at 7am. As per patient, the last time he got suboxone was one week ago and he was only given one week supply. Patient stated his insurance restricted him to only one pharmacy so he has to see his PCP again in order to obtain new scripts as the script he received went to [facility] and they cannot fill it because of his restriction. Patient aware that he should notify his PCP that he only needs Rx for suboxone and gabapentin to start on 05/19/19 in which he verbalized understanding. Patient denies having any medication of suboxone and gabapentin at home. Objective: 05/17/19 14:51 Last Vital Signs Temp Pulse Resp BP Pulse Ox 98.2 F 71 18 130/53 L 05/17/19 09:53 05/17/19 09:53 05/17/19 09:53 05/17/19 09:53 Laboratory Tests 05/13/19 05/13/19 05/13/19 11:05 11:05 11:05 WBC 9.1 RBC 4.37 Hgb 13.1 Hct 39.2 MCV 89.7 MCH 29.9 MCHC 33.3 RDW 14.7 D Plt Count 164 MPV 10.6 Sodium 141 Potassium 3.4 L Chloride 106 Carbon Dioxide 27 Anion Gap 9 BUN 10.4 Creatinine 1.0 Est GFR (CKD-EPI)AfAm 110.94 Est GFR (CKD-EPI)NonAf 95.72 Random Glucose 84 Calcium 9.2 Total Bilirubin 0.4 AST 39 H ALT 66 H Alkaline Phosphatase 93 Total Protein 7.1 Albumin 3.9 RPR Titer Nonreactive Labs reviewed: K 3.4 (was not replenished), elevated LFTs (AST/ALT) Assessment: 05/17/19 14:53 Withdrawal sxs Noted with hypokalemia and elevated LFTs Plan: Continue detox Encouraged PO water hydration Patient scheduled for discharge tomorrow at 7am Instructed to follow up with PCP tomorrow or by Saturday so that he can have Rx for his home medications including suboxone and gabapentin Hypokalemia, mild: asymptomatic, give K Dur 40 meq PO x 1 dose, unable to repeat serum K level in AM as patient wants to leave at 7a, Elevated LFTs: mildly elevated AST/ALT most likely due to alcoholism, follow up with PCP for monitoring
[2019-05-17] MEDS ORDERED: POTASSIUM CHLORIDE TABS 20 MEQ TABLET.ER (FP) PO ONE (15:01)
[2019-05-17 21:45] VITALS: BP 140/70; PULSE 75; TEMP 99
[2019-05-17] MEDS: THIAMINE HCL 100 MG TABLET (FP) PO SCH (22:18)
[2019-05-17] MEDS: MELATONIN 5 MG TABLETS PO PRN (22:18)
[2019-05-18] MEDS ORDERED: chlordiazePOXIDE HCL 10 MG CAPSULE PO ONE (05:00)
[2019-05-18] MEDS ORDERED: BUPRENORPHINE/NALOXONE 8 MG/2 MG FILM PACKET SL SCH (06:00)
[2019-05-18] MEDS ORDERED: GABAPENTIN 300 MG CAPSULE (FP) PO ONE (06:00)
--- NOTE | 2019-05-18 13:31 | PN ---
[facility] CIWA - CIWA Score Nausea/Vomitin-No Nausea/No Vomiting Muscle Tremors: 1-None Visible, but [place] Anxiety: 1-Mildly Anxious Agitation: 1-Slight > Activity Paroxysmal Sweats: No Perspiration Orientation: 0-Oriented Tacttile Disturbances: 0-None Auditory Disturbances: 0-None Visual Disturbances: 0-None Headache: 0-None Present CIWA-Ar Total Score: 3 BHS Progress Note (SOAP) Subjective: alert,irritable,anxious Objective: 05/18/19 13:30 Vital Signs Temperature 99 F 05/17/19 21:44 Pulse Rate 75 05/17/19 21:44 Respiratory Rate 18 05/18/19 03:30 Blood Pressure 140/70 05/17/19 21:44 O2 Sat by Pulse Oximetry (%) Assessment: 05/18/19 13:30 no withdrawal symptom Plan: discharge today,follow up with after care program as arrangement
--- NOTE | 2019-05-18 13:34 | DS ---
[facility] Detox Discharge Summary Admission Date: 05/13/19 Discharge Date: 05/18/19 - History Present History: Alcohol Dependence Additional Comments: follow up with after care program as arrangement Pertinent Past History: asthma - Physical Exam Results Vital Signs: Vital Signs Temperature 99 F 05/17/19 21:44 Pulse Rate 75 05/17/19 21:44 Respiratory Rate 18 05/18/19 03:30 Blood Pressure 140/70 05/17/19 21:44 O2 Sat by Pulse Oximetry (%) Pertinent Admission Physical Exam Findings: withdrawal signs and symptom Laboratory Last Values WBC 9.1 K/mm3 (4.0-10.0) 05/13/19 11:05 RBC 4.37 M/mm3 (4.00-5.60) 05/13/19 11:05 Hgb 13.1 GM/dL (11.7-16.9) 05/13/19 11:05 Hct 39.2 % (35.4-49) 05/13/19 11:05 MCV 89.7 fl (80-96) 05/13/19 11:05 MCH 29.9 pg (25.7-33.7) 05/13/19 11:05 MCHC 33.3 g/dl (32.0-35.9) 05/13/19 11:05 RDW 14.7 % (11.9-15.9) D 05/13/19 11:05 Plt Count 164 K/MM3 (134-434) 05/13/19 11:05 MPV 10.6 fl (7.5-11.1) 05/13/19 11:05 Sodium 141 mmol/L (136-145) 05/13/19 11:05 Potassium 3.4 mmol/L (3.5-5.1) L 05/13/19 11:05 Chloride 106 mmol/L (98-107) 05/13/19 11:05 Carbon Dioxide 27 mmol/L (21-32) 05/13/19 11:05 Anion Gap 9 MMOL/L (8-16) 05/13/19 11:05 BUN 10.4 mg/dL (7-18) 05/13/19 11:05 Creatinine 1.0 mg/dL (0.55-1.3) 05/13/19 11:05 Est GFR (CKD-EPI)AfAm 110.94 05/13/19 11:05 Est GFR (CKD-EPI)NonAf 95.72 05/13/19 11:05 Random Glucose 84 mg/dL (74-106) 05/13/19 11:05 Calcium 9.2 mg/dL (8.5-10.1) 05/13/19 11:05 Total Bilirubin 0.4 mg/dL (0.2-1) 05/13/19 11:05 AST 39 U/L (15-37) H 05/13/19 11:05 ALT 66 U/L (13-61) H 05/13/19 11:05 Alkaline Phosphatase 93 U/L (45-117) 05/13/19 11:05 Total Protein 7.1 g/dl (6.4-8.2) 05/13/19 11:05 Albumin 3.9 g/dl (3.4-5.0) 05/13/19 11:05 RPR Titer Nonreactive (NONREACTIVE) 05/13/19 11:05 Vital Signs Temperature 99 F 05/17/19 21:44 Pulse Rate 75 05/17/19 21:44 Respiratory Rate 18 05/18/19 03:30 Blood Pressure 140/70 05/17/19 21:44 O2 Sat by Pulse Oximetry (%) - Treatment Hospital Course: Detox Protocol Followed, Detoxed Safely, Responded well, Discharged Condition Good Patient has Accepted a Rehab Referral to: declined - Medication Discharge Medications: Ambulatory Orders Albuterol Sulfate Inhaler - [Ventolin Hfa Inhaler -] 2 inh PO Q4H PRN 04/08/18 Buprenorphine/Naloxone [Suboxone 8Mg/2Mg Sl Film -] 1 each SL BID 04/08/18 Gabapentin [Neurontin -] 600 mg PO BID 04/08/18 Montelukast Na [Singulair -] 10 mg PO HS 04/08/18 - Diagnosis (1) Alcohol dependence with uncomplicated withdrawal Status: Acute (2) History of asthma Status: Chronic - AMA Did Patient Leave Against Medical Advice: No
== END 2019-05-18 06:57 | disposition home or self-care (01) | DRG 775 ==
LOC: YASAS 09:05 → Y6N 10:27
PROVIDERS: ADMIT Allergy & Immunology; ATTEND Allergy & Immunology
PROC: HZ2ZZZZ Detoxification Services for Substance Abuse Treatment (ICD-10-PCS; principal; 2019-05-13)
DX: F10.230 Alcohol dependence with withdrawal, uncomplicated (principal); F17.210 Nicotine dependence, cigarettes, uncomplicated; J45.909 Unspecified asthma, uncomplicated; E87.6 Hypokalemia; R94.5 Abnormal results of liver function studies; R74.0 Nonspecific elevation of levels of transaminase and lactic acid dehydrogenase [LDH]; Z91.013 Allergy to seafood
CPT/HCPCS: 36415; 80053; 85027; 86593

== ENCOUNTER 2020-09-06 10:01 | Inpatient (IN) | payer OTHER ==
[2020-09-06 11:35] VITALS: BMI 30.8
[2020-09-06] MEDS ORDERED: chlordiazePOXIDE HCL 25 MG CAPSULE PO PRN (12:08)
[2020-09-06] MEDS ORDERED: BISMUTH SUBSALICYLATE 262 MG/15 ML BTL PO PRN (12:08)
[2020-09-06] MEDS ORDERED: MAG HYDROX/AL HYDROX/SIMETH 30 ML UNIT-DOSE CUP PO PRN (12:08)
[2020-09-06] MEDS ORDERED: IBUPROFEN 400 MG TABLET (FP) PO PRN (12:08)
[2020-09-06] MEDS ORDERED: ONDANSETRON *ODT* 4 MG TABLET SL PRN (12:08)
[2020-09-06] MEDS ORDERED: ACETAMINOPHEN 325 MG TABLET (FP) PO PRN ×2 (12:08)
[2020-09-06] MEDS ORDERED: MAGNESIUM HYDROX 2400MG/30ML ORAL SUSPENSION 30 ML CUP PO PRN (12:08)
[2020-09-06] MEDS ORDERED: METHOCARBAMOL 500 MG TABLET PO PRN (12:08)
[2020-09-06] MEDS ORDERED: MAGNESIUM CITRATE 300 ML BOTTLE PO PRN (12:08)
[2020-09-06] MEDS ORDERED: ALBUTEROL SO4 HFA INHALER IH PRN (12:10)
[2020-09-06] MEDS: chlordiazePOXIDE HCL 25 MG CAPSULE PO SCH ×3 (14:18→22:19)
[2020-09-06] MEDS: PRENATAL VITAMINS W/ FOLIC ACID TABLET (FP) PO SCH (14:20)
[2020-09-06] MEDS: hydrOXYzine PAMOATE 25 MG CAPSULE (FP) PO SCH ×3 (14:21→22:19)
[2020-09-06 15:23] LABS: POTASSIUM 3.2 mmol/L (3.5-5.1)
[2020-09-06 15:26] LABS: BLOOD UREA NITROGEN 11.4 mg/dL (7-18); CALCIUM 9.4 mg/dL (8.5-10.1)
[2020-09-06 15:29] LABS: ALBUMIN 4.3 g/dl (3.4-5.0); CREATININE 1.1 mg/dL (0.55-1.3)
[2020-09-06 15:31] LABS: BILIRUBIN,TOTAL 0.4 mg/dL (0.2-1); TOT PROT 8.3 g/dl (6.4-8.2)
[2020-09-06 15:34] LABS: HEMATOCRIT 44.6 % (35.4-49); HEMOGLOBIN 14.8 GM/dL (11.7-16.9); MCH 30.1 pg (25.7-33.7); MCHC 33.1 g/dl (32.0-35.9); MEAN CELL VOLUME 90.8 fl (80-96); MEAN PLT VOLUME 10.8 fl (7.5-11.1); PLATELET COUNT 163 K/MM3 (134-434); RBC 4.91 M/mm3 (4.00-5.60); RDW 14.3 % (11.9-15.9); WHITE BLOOD COUNT 13.9 K/mm3 (4.0-10.0)
[2020-09-06] MEDS ORDERED: POTASSIUM CHLORIDE ORAL LIQUID 20 MEQ/15 ML PO ONE ×2 (17:57→23:00)
[2020-09-06] MEDS: MELATONIN 5 MG TABLETS PO SCH (22:19)
[2020-09-06] MEDS: THIAMINE HCL 100 MG TABLET (FP) PO SCH (22:19)
[2020-09-07] MEDS: chlordiazePOXIDE HCL 25 MG CAPSULE PO SCH ×4 (07:02→22:07)
[2020-09-07] MEDS: hydrOXYzine PAMOATE 25 MG CAPSULE (FP) PO SCH ×2 (07:03→10:18)
[2020-09-07] MEDS ORDERED: METHADONE HCL 10 MG TABLET ONE (09:17)
[2020-09-07] MEDS ORDERED: METHADONE HCL 40 MG DISPERSABLE TABLET ONE (09:18)
[2020-09-07] MEDS ORDERED: METHADONE 80 MG, METHADONE 10 MG PO SCH ×2 (09:30→10:00)
[2020-09-07] MEDS ORDERED: METHADONE HCL 40 MG DISPERSABLE TABLET PO SCH (10:00)
[2020-09-07] MEDS: PRENATAL VITAMINS W/ FOLIC ACID TABLET (FP) PO SCH (10:16)
[2020-09-07] MEDS: hydrOXYzine PAMOATE 25 MG CAPSULE (FP) PO PRN (18:19)
[2020-09-07] MEDS: MELATONIN 5 MG TABLETS PO SCH (22:07)
[2020-09-07] MEDS: THIAMINE HCL 100 MG TABLET (FP) PO SCH (22:07)
[2020-09-08] MEDS ORDERED: METHADONE HCL 10 MG TABLET ONE (04:30)
[2020-09-08] MEDS ORDERED: METHADONE HCL 40 MG DISPERSABLE TABLET ONE (04:31)
[2020-09-08] MEDS: METHADONE 80 MG, METHADONE 10 MG PO SCH (05:27)
[2020-09-08] MEDS: chlordiazePOXIDE HCL 25 MG CAPSULE PO SCH ×3 (05:28→16:49)
[2020-09-08] MEDS: MENTHOL/PHENOL 1 EACH UD MM PRN ×2 (05:34→10:19)
[2020-09-08] MEDS: PRENATAL VITAMINS W/ FOLIC ACID TABLET (FP) PO SCH (10:11)
[2020-09-08] MEDS: hydrOXYzine PAMOATE 25 MG CAPSULE (FP) PO PRN ×2 (10:14→22:02)
[2020-09-08] MEDS ORDERED: LORazepam 1 MG TABLET PO PRN (18:51)
[2020-09-08] MEDS: MELATONIN 5 MG TABLETS PO SCH (22:02)
[2020-09-08] MEDS: THIAMINE HCL 100 MG TABLET (FP) PO SCH (22:02)
[2020-09-08] MEDS ORDERED: LORazepam 2 MG TABLET PO SCH (23:00)
[2020-09-09] MEDS ORDERED: chlordiazePOXIDE HCL 10 MG CAPSULE PO PRN
[2020-09-09] MEDS ORDERED: METHADONE HCL 10 MG TABLET ONE (04:29)
[2020-09-09] MEDS ORDERED: METHADONE HCL 40 MG DISPERSABLE TABLET ONE (04:29)
[2020-09-09] MEDS ORDERED: chlordiazePOXIDE HCL 10 MG CAPSULE PO SCH (05:00)
[2020-09-09] MEDS: METHADONE 80 MG, METHADONE 10 MG PO SCH (05:34)
[2020-09-09] MEDS: LORazepam 1 MG TABLET PO SCH ×4 (07:07→22:20)
[2020-09-09] MEDS: PRENATAL VITAMINS W/ FOLIC ACID TABLET (FP) PO SCH (10:12)
[2020-09-09] MEDS: MENTHOL/PHENOL 1 EACH UD MM PRN (19:58)
[2020-09-09] MEDS: MELATONIN 5 MG TABLETS PO SCH (22:19)
[2020-09-09] MEDS: THIAMINE HCL 100 MG TABLET (FP) PO SCH (22:19)
[2020-09-10] MEDS ORDERED: LORazepam 0.5 MG TABLET PO PRN
[2020-09-10] MEDS ORDERED: METHADONE HCL 40 MG DISPERSABLE TABLET ONE (04:05)
[2020-09-10] MEDS ORDERED: METHADONE HCL 10 MG TABLET ONE (04:05)
[2020-09-10] MEDS ORDERED: chlordiazePOXIDE HCL 10 MG CAPSULE PO SCH (05:00)
[2020-09-10] MEDS: METHADONE 80 MG, METHADONE 10 MG PO SCH (05:41)
[2020-09-10] MEDS: LORazepam 0.5 MG TABLET PO SCH ×4 (05:42→22:52)
[2020-09-10] MEDS: PRENATAL VITAMINS W/ FOLIC ACID TABLET (FP) PO SCH (10:09)
[2020-09-10 13:20] LABS: HEMATOCRIT 36.3 % (35.4-49); HEMOGLOBIN 12.3 GM/dL (11.7-16.9); MCH 30.6 pg (25.7-33.7); MCHC 33.8 g/dl (32.0-35.9); MEAN CELL VOLUME 90.6 fl (80-96); MEAN PLT VOLUME 10.9 fl (7.5-11.1); PLATELET COUNT 126 K/MM3 (134-434); RBC 4.01 M/mm3 (4.00-5.60); RDW 13.9 % (11.9-15.9); WHITE BLOOD COUNT 8.3 K/mm3 (4.0-10.0)
[2020-09-10] MEDS: MELATONIN 5 MG TABLETS PO SCH (22:52)
[2020-09-10] MEDS: THIAMINE HCL 100 MG TABLET (FP) PO SCH (22:52)
[2020-09-11] MEDS ORDERED: chlordiazePOXIDE HCL 10 MG CAPSULE PO ONE (05:00)
[2020-09-11] MEDS ORDERED: LORazepam 0.5 MG TABLET PO ONE (05:00)
[2020-09-11] MEDS ORDERED: METHADONE HCL 10 MG TABLET ONE (05:09)
[2020-09-11] MEDS: METHADONE 80 MG, METHADONE 10 MG PO SCH (05:10)
[2020-09-11] MEDS ORDERED: METHADONE HCL 40 MG DISPERSABLE TABLET ONE (05:10)
[2020-09-11 09:46] VITALS: BP 106/67; PULSE 73; TEMP 98.2
[2020-09-11] MEDS: PRENATAL VITAMINS W/ FOLIC ACID TABLET (FP) PO SCH (10:25)
== END 2020-09-11 12:22 | disposition home or self-care (01) | DRG 773 ==
LOC: YASAS 10:01 → Y3N 12:45
PROVIDERS: ADMIT Allergy & Immunology; ATTEND Allergy & Immunology
PROC: HZ2ZZZZ Detoxification Services for Substance Abuse Treatment (ICD-10-PCS; principal; 2020-09-06)
DX: F10.230 Alcohol dependence with withdrawal, uncomplicated (principal); F11.20 Opioid dependence, uncomplicated; F14.10 Cocaine abuse, uncomplicated; F13.10 Sedative, hypnotic or anxiolytic abuse, uncomplicated; F17.210 Nicotine dependence, cigarettes, uncomplicated; H26.9 Unspecified cataract; L29.8 Other pruritus; T42.4X5A Adverse effect of benzodiazepines, initial encounter; Y92.238 Other place in hospital as the place of occurrence of the external cause; Z87.09 Personal history of other diseases of the respiratory system; Z88.8 Allergy status to other drugs, medicaments and biological substances; Z91.013 Allergy to seafood
CPT/HCPCS: 36415; 80053; 82947; 84132; 85027; 86780; C9803; U0003

== ENCOUNTER 2020-10-21 13:09 | Inpatient (IN) | payer OTHER ==
[2020-10-21 13:57] VITALS: BMI 31.2
[2020-10-21] MEDS ORDERED: METHOCARBAMOL 500 MG TABLET PO PRN (15:29)
[2020-10-21] MEDS ORDERED: ACETAMINOPHEN 325 MG TABLET (FP) PO PRN ×2 (15:29)
[2020-10-21] MEDS ORDERED: MAGNESIUM CITRATE 300 ML BOTTLE PO PRN (15:29)
[2020-10-21] MEDS ORDERED: NICOTINE POLACRILEX 2 MG GUM BUC PRN (15:29)
[2020-10-21] MEDS ORDERED: MAG HYDROX/AL HYDROX/SIMETH 30 ML UNIT-DOSE CUP PO PRN (15:29)
[2020-10-21] MEDS ORDERED: IBUPROFEN 400 MG TABLET (FP) PO PRN (15:29)
[2020-10-21] MEDS ORDERED: ONDANSETRON *ODT* 4 MG TABLET SL PRN (15:29)
[2020-10-21] MEDS ORDERED: MENTHOL/PHENOL 1 EACH UD MM PRN (15:29)
[2020-10-21] MEDS ORDERED: MAGNESIUM HYDROX 2400MG/30ML ORAL SUSPENSION 30 ML CUP PO PRN (15:29)
[2020-10-21] MEDS ORDERED: BISMUTH SUBSALICYLATE 524 MG/30 ML UD PO PRN (15:29)
[2020-10-21] MEDS ORDERED: ALBUTEROL SO4 HFA INHALER IH PRN (15:32)
[2020-10-21 16:57] LABS: HEMATOCRIT 42.4 % (35.4-49); MCH 30.2 pg (25.7-33.7); MCHC 32.9 g/dl (32.0-35.9); MEAN CELL VOLUME 91.8 fl (80-96); MEAN PLT VOLUME 10.8 fl (7.5-11.1); PLATELET COUNT 210 K/MM3 (134-434); RBC 4.62 M/mm3 (4.00-5.60); RDW 14.6 % (11.9-15.9); WHITE BLOOD COUNT 9.1 K/mm3 (4.0-10.0)
[2020-10-21 17:01] LABS: POTASSIUM 4.7 mmol/L (3.5-5.1)
[2020-10-21 17:02] LABS: ALBUMIN 3.8 g/dl (3.4-5.0); CALCIUM 9.7 mg/dL (8.5-10.1)
[2020-10-21 17:03] LABS: BLOOD UREA NITROGEN 15.6 mg/dL (7-18)
[2020-10-21 17:06] LABS: CREATININE 1.2 mg/dL (0.55-1.3)
[2020-10-21 17:08] LABS: BILIRUBIN,TOTAL 0.5 mg/dL (0.2-1); TOT PROT 7.6 g/dl (6.4-8.2)
[2020-10-21] MEDS: BUPRENORPHINE/NALOXONE 8 MG/2 MG FILM PACKET SL SCH ×2 (17:43→22:43)
[2020-10-21] MEDS: diazePAM 5 MG TABLET PO SCH ×2 (17:43→22:44)
[2020-10-21] MEDS: hydrOXYzine PAMOATE 25 MG CAPSULE (FP) PO SCH ×3 (17:43→22:43)
[2020-10-21] MEDS: THIAMINE HCL 100 MG TABLET (FP) PO SCH (22:43)
[2020-10-21] MEDS: MELATONIN 5 MG TABLETS PO SCH (22:43)
[2020-10-21] MEDS: GABAPENTIN 300 MG CAPSULE PO SCH (22:43)
[2020-10-22] MEDS: diazePAM 5 MG TABLET PO SCH ×4 (05:49→22:05)
[2020-10-22] MEDS: hydrOXYzine PAMOATE 25 MG CAPSULE (FP) PO SCH ×5 (05:49→22:05)
[2020-10-22] MEDS: BUPRENORPHINE/NALOXONE 8 MG/2 MG FILM PACKET SL SCH ×3 (05:50→21:03)
[2020-10-22] MEDS: PRENATAL VITAMINS W/ FOLIC ACID TABLET (FP) PO SCH (10:07)
[2020-10-22] MEDS: GABAPENTIN 300 MG CAPSULE PO SCH ×2 (10:07→22:05)
[2020-10-22] MEDS: THIAMINE HCL 100 MG TABLET (FP) PO SCH (22:05)
[2020-10-22] MEDS: MELATONIN 5 MG TABLETS PO SCH (22:05)
[2020-10-23] MEDS: hydrOXYzine PAMOATE 25 MG CAPSULE (FP) PO SCH ×5 (05:27→23:16)
[2020-10-23] MEDS: BUPRENORPHINE/NALOXONE 8 MG/2 MG FILM PACKET SL SCH ×3 (05:27→21:00)
[2020-10-23] MEDS: diazePAM 5 MG TABLET PO SCH ×3 (05:27→23:16)
[2020-10-23] MEDS: GABAPENTIN 300 MG CAPSULE PO SCH ×2 (10:08→23:16)
[2020-10-23] MEDS: PRENATAL VITAMINS W/ FOLIC ACID TABLET (FP) PO SCH (10:08)
[2020-10-23] MEDS: diazePAM 5 MG TABLET PO PRN (17:44)
[2020-10-23] MEDS: MELATONIN 5 MG TABLETS PO SCH (23:16)
[2020-10-23] MEDS: THIAMINE HCL 100 MG TABLET (FP) PO SCH (23:16)
[2020-10-24] MEDS: BUPRENORPHINE/NALOXONE 8 MG/2 MG FILM PACKET SL SCH ×3 (05:38→21:13)
[2020-10-24] MEDS: diazePAM 5 MG TABLET PO SCH ×2 (05:38→17:17)
[2020-10-24] MEDS: hydrOXYzine PAMOATE 25 MG CAPSULE (FP) PO SCH ×6 (05:39→21:15)
[2020-10-24] MEDS: PRENATAL VITAMINS W/ FOLIC ACID TABLET (FP) PO SCH (10:20)
[2020-10-24] MEDS: GABAPENTIN 300 MG CAPSULE PO SCH ×2 (10:20→21:13)
[2020-10-24] MEDS: diazePAM 5 MG TABLET PO PRN (15:12)
[2020-10-24 15:38] LABS: URINE APPEARANCE CLEAR; URINE BILIRUBIN NEGATIVE (NEGATIVE); URINE COLOR YELLOW; URINE GLUCOSE (UA) NEGATIVE (NEGATIVE); URINE KETONE TRACE (NEGATIVE); URINE LEUK ESTERASE NEGATIVE (NEGATIVE); URINE NITRITE NEGATIVE (NEGATIVE); URINE PROTEIN NEGATIVE (NEGATIVE)
[2020-10-24] MEDS: THIAMINE HCL 100 MG TABLET (FP) PO SCH (21:13)
[2020-10-24] MEDS: MELATONIN 5 MG TABLETS PO SCH (21:13)
[2020-10-25] MEDS: BUPRENORPHINE/NALOXONE 8 MG/2 MG FILM PACKET SL SCH (05:25)
[2020-10-25] MEDS: hydrOXYzine PAMOATE 25 MG CAPSULE (FP) PO SCH (05:27)
[2020-10-25] MEDS ORDERED: diazePAM 5 MG TABLET PO ONE (06:00)
[2020-10-25 06:10] VITALS: BP 111/65; PULSE 57; TEMP 97.2
== END 2020-10-25 09:06 | disposition home or self-care (01) | DRG 773 ==
LOC: YASAS 13:09 → Y3N 16:42
PROVIDERS: ADMIT Allergy & Immunology; ATTEND Allergy & Immunology
PROC: HZ2ZZZZ Detoxification Services for Substance Abuse Treatment (ICD-10-PCS; principal; 2020-10-21)
DX: F10.230 Alcohol dependence with withdrawal, uncomplicated (principal); F11.20 Opioid dependence, uncomplicated; F14.20 Cocaine dependence, uncomplicated; F13.10 Sedative, hypnotic or anxiolytic abuse, uncomplicated; G62.9 Polyneuropathy, unspecified; J45.20 Mild intermittent asthma, uncomplicated; Z51.81 Encounter for therapeutic drug level monitoring; Z79.899 Other long term (current) drug therapy; Z88.8 Allergy status to other drugs, medicaments and biological substances; Z91.013 Allergy to seafood
CPT/HCPCS: 36415; 80053; 81003; 85027; 86780; 93005; 93010; C9803; U0003; U0005